=== PATIENT | male | born 2005 | race Caucasian/White ===

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

== ENCOUNTER 2024-02-01 20:15 | Emergency (ER) | payer MEDICAID ==
[~2024-02-01] VITALS: Ht 170.2 cm; Wt 57.4 kg
[~2024-02-01 20:15] MED LIST changes: +ONDA-243 PO
[2024-02-01 20:19] VITALS: PULSE 77; TEMP 99.5; O2SAT 99
[2024-02-01 21:04] VITALS: RESP 16
== END 2024-02-01 21:05 | disposition home or self-care (01) ==
LOC: ER 20:16
DX: S60.222A Contusion of left hand, initial encounter (principal); Z79.899 Other long term (current) drug therapy; X58.XXXA Exposure to other specified factors, initial encounter; Y93.89 Activity, other specified; Y92.89 Other specified places as the place of occurrence of the external cause; Y99.8 Other external cause status
CPT/HCPCS: 73130; 99283

== ENCOUNTER 2024-05-14 11:28 | Outpatient (CLI) | payer MEDICAID | END 2024-05-14 23:59 | disposition home or self-care (01) | LOC: MRI02 11:28 | PROVIDERS: ATTEND Physician Assistant Surgical | DX: M79.642 Pain in left hand (principal); M79.89 Other specified soft tissue disorders | CPT/HCPCS: 73218 ==